=== PATIENT | male | born 1940 | race Asian ===

== ENCOUNTER 2018-07-19 10:30 | Emergency (ER) | payer OTHER, MEDICAID ==
[~2018-07-19] VITALS: Ht 182.9 cm; Wt 81.2 kg
[2018-07-19 10:35] VITALS: BP 110/54
--- NOTE | 2018-07-19 10:40 | NUR ---
PATIENT AMBULATED TO BED 3 AT THIS TIME.
--- NOTE | 2018-07-19 10:43 | NUR ---
78Y/M [facility] C/O LEFT EYE IRRITATION X 2 WEEKS. REDNESS AND DRAINAGE NOTED FROM EYE. PT STATES BLURRINESS IN THE EYE. REPORTS IRRITATION X 2 WEEKS; PT TAKING VITAMINS AND OVER THE COUNTER EYE DROPS WITH NOT RELIEF. [facility] STATES PT EYELASHES ARE IRRITATTING PT EYES AT THIS TIME". HX: HTN RX: DENIES
--- NOTE | 2018-07-19 10:45 | NUR ---
PT IS BEING EVALUATED BY DR. PICKERING.
[2018-07-19 11:01] VITALS: BP 128/73
--- NOTE | 2018-07-19 11:01 | NUR ---
Patient discharged with v/s stable. Written and verbal after care instructions given and explained. Patient alert, oriented and verbalized understanding of instructions. Ambulatory with steady gait. All questions addressed prior to discharge. ID band removed. Patient advised to follow up with PMD. Rx of ERYTHROMYCIN AND NAPHAZOLINE given. Patient educated on indication of medication including possible reaction and side effects. Opportunity to ask questions provided and answered.
== END 2018-07-19 11:01 | disposition home or self-care (01) ==
LOC: MED 10:30
DX: H10.9 Unspecified conjunctivitis (principal); H02.006 Unspecified entropion of left eye, unspecified eyelid; I10 Essential (primary) hypertension
CPT/HCPCS: 99283